=== PATIENT | male | born 1990 | race Caucasian/White ===

== ENCOUNTER 2021-08-02 04:55 | Emergency (ER) | payer OTHER ==
[~2021-08-02 04:55] MED LIST: ETODOLAC500 MG PO; VOLTAREN **OUT50 MG PO
[2021-08-02] MEDS ORDERED: MEDROL 4MG DOSEP4 MG PO (05:36)
== END 2021-08-02 05:55 | disposition home or self-care (01) ==
LOC: FER 04:55
DX: M54.12 Radiculopathy, cervical region (principal); F17.200 Nicotine dependence, unspecified, uncomplicated
CPT/HCPCS: 96372; 99283; J1100; J1885

== ENCOUNTER 2021-11-03 11:19 | Emergency (ER) | payer OTHER ==
[~2021-11-03 11:19] MED LIST changes: +MEDROL 4MG DOSEP4 MG PO
== END 2021-11-03 11:45 | disposition home or self-care (01) ==
LOC: FER 11:19
DX: T16.1XXA Foreign body in right ear, initial encounter (principal); F17.210 Nicotine dependence, cigarettes, uncomplicated; Z28.310 Unvaccinated for COVID-19